=== PATIENT | male | born 1965 | race Caucasian/White ===

== ENCOUNTER 2020-01-11 05:29 | Emergency (ER) | payer MEDICAID, OTHER ==
[~2020-01-11] VITALS: Ht 172.7 cm; Wt 81.6 kg
--- NOTE | 2020-01-11 06:10 | NUR ---
PT AAOX4. AMBULATORY C/O RASHES x 4 DAYS AGO. PLACED ON MONITOR AND PULSE OX. VSS. AWAITING MD FOR EVAL.
[2020-01-11 06:38] VITALS: BP 119/75
--- NOTE | 2020-01-11 06:38 | NUR ---
PT IS MEDCIALLY LCEAR FOR D/C PER MD. DENIED HOMELESS STATUS. Patient discharged to home in stable condition. Rx and Written and verbal after care instructions given. Patient verbalizes understanding of instruction.
== END 2020-01-11 06:39 | disposition home or self-care (01) ==
LOC: ER 05:31
DX: L73.9 Follicular disorder, unspecified (principal); J45.909 Unspecified asthma, uncomplicated

== ENCOUNTER 2020-03-19 01:08 | Emergency (ER) | payer SELFPAY ==
[~2020-03-19] VITALS: Ht 172.7 cm; Wt 72.6 kg
--- NOTE | 2020-03-19 01:47 | NUR ---
PATIENT CAME TO ER BED 10 C/O MIGRAINES 2x DAYS, WHILE TAKING EXCEDRIN WITH NO RELIEF. AAOX4. NO SOB. BREATHING EVENLY AND UNLABORED ON ROOM AIR.
[2020-03-19] MEDS ORDERED: KETOROLAC TROMETHAMINE 15 MG/ML VIAL ONE (01:53)
[2020-03-19] MEDS ORDERED: diphenhydrAMINE HCL 50 MG/ML VIAL ONE (01:53)
[2020-03-19] MEDS ORDERED: METOCLOPRAMIDE HCL 10 MG/2 ML VIAL ONE (01:54)
[2020-03-19] MEDS ORDERED: AZITHROMYCIN 250 MG TABLET ONE (01:54)
[2020-03-19] MEDS ORDERED: CEFTRIAXONE 500 MG VIAL ONE (01:54)
[2020-03-19] MEDS ORDERED: CEFTRIAXONE 500 MG VIAL IV ONE (02:00)
[2020-03-19] MEDS ORDERED: KETOROLAC TROMETHAMINE INJ 60 MG/2 ML VIAL IM ONE (02:00)
[2020-03-19] MEDS ORDERED: AZITHROMYCIN 250 MG TABLET PO ONE (02:00)
[2020-03-19] MEDS ORDERED: METOCLOPRAMIDE HCL 10 MG/2 ML VIAL IV ONE (02:00)
[2020-03-19] MEDS ORDERED: IV NS 0.9% 1,000 ML BAG IV ONE (02:00)
[2020-03-19] MEDS ORDERED: diphenhydrAMINE HCL 50 MG/ML VIAL IV ONE (02:00)
--- NOTE | 2020-03-19 02:10 | NUR ---
PATIENT STATES, "I FEEL BETTER, I WANT TO LEAVE RIGHT NOW".
--- NOTE | 2020-03-19 02:16 | NUR ---
IV removed. Catheter intact and site benign. Pressure and 4x4 applied to site. No bleeding noted.
--- NOTE | 2020-03-19 02:17 | NUR ---
Patient discharged to home in stable condition. Written and verbal after care instructions given. Patient verbalizes understanding of instruction.
--- NOTE | 2020-03-19 03:01 | NUR ---
Note undone in EDM - 03/19/20 at 0347 by RAMONA IV removed. Catheter intact and site benign. Pressure and 4x4 applied to site. No bleeding noted.
--- NOTE | 2020-03-19 03:42 | NUR ---
Bhupinder cagle in ED - 03/19/20 at 0347 by RAMONA Patient discharged to home in stable condition. Written and verbal after care instructions given. Patient verbalizes understanding of instruction.
[2020-03-19 04:01] VITALS: BP 18/79
== END 2020-03-19 02:17 | disposition home or self-care (01) ==
LOC: ER 01:10
DX: G43.909 Migraine, unspecified, not intractable, without status migrainosus (principal); L03.119 Cellulitis of unspecified part of limb; L73.9 Follicular disorder, unspecified; Z20.2 Contact with and (suspected) exposure to infections with a predominantly sexual mode of transmission; J45.909 Unspecified asthma, uncomplicated
CPT/HCPCS: 96365; 96372; 96375; 99284; A4216; J0696; J1200; J1885; J2765; J7030 ×2

== ENCOUNTER 2021-04-14 05:46 | Emergency (ER) | payer SELFPAY ==
[~2021-04-14] VITALS: Ht 172.7 cm; Wt 75.3 kg
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
[2021-04-14] MEDS ORDERED: TDAP [DIPH/PERTUSSIS/TET] 0.5 ML VIAL IM ONE ×2 (06:25→06:30)
[2021-04-14] MEDS ORDERED: IV NS 0.9% 1,000 ML BAG IV ONE (06:30)
[2021-04-14 06:40] LABS: BASOPHILS # (AUTO) 0.1 K/uL (0.0-0.2); BASOPHILS % (AUTO) 0.9 % (0.0-2.0); EOSINOPHILS % (AUTO) 4.1 % (0.0-6.0); HEMATOCRIT 41 % (39-51); HEMOGLOBIN 13.6 g/dL (13.5-17.5); LYMPHOCYTES # (AUTO) 1.8 K/uL (0.8-4.8); LYMPHOCYTES % (AUTO) 28.8 % (20.0-44.0); MEAN CORPUSCULAR HGB CONC 33 g/dl (31.0-36.0); MEAN CORPUSCULAR VOLUME 91 fL (80-96); MONOCYTES # (AUTO) 0.5 K/uL (0.1-1.30); MONOCYTES % (AUTO) 8.7 % (2.0-12.0); NEUTROPHILS # (AUTO) 3.6 K/uL (1.8-8.9); NEUTROPHILS % (AUTO) 57.5 % (43.0-81.0); PLATELET COUNT (AUTO) 248 K/uL (150-450); RED BLOOD CELL COUNT(AUTO) 4.49 MIL/uL (4.5-6.0); WHITE BLOOD COUNT (AUTO) 6.2 K/uL (4.3-11.0)
[2021-04-14 07:09] LABS: ALANINE AMINOTRANSFERASE 24 U/L (12-78); ALBUMIN 3.5 g/dL (3.4-5.0); ALCOHOL, BLOOD < 3 mg/dL (0-0); ALKALINE PHOSPHATASE 69 U/L (46-116); ASPARTATE AMINOTRANSFERASE 18 U/L (15-37); BILIRUBIN,DIRECT 0.1 mg/dL (0.0-0.2); BILIRUBIN,TOTAL 0.4 mg/dL (0.2-1.0); CALCIUM, SERUM 8.1 mg/dL (8.5-10.1); CARBON DIOXIDE 30 mmol/L (21-32); CHLORIDE 105 mmol/L (98-107); CREATININE 0.9 mg/dL (0.6-1.3); GLUCOSE 130 mg/dL (74-106); POTASSIUM 3.6 mmol/L (3.5-5.1); SODIUM SERUM 140 mmol/L (136-145); TOTAL PROTEIN, SERUM 7.1 g/dL (6.4-8.2); UREA NITROGEN, BLOOD 17 mg/dL (7-18)
--- NOTE | 2021-04-14 08:25 | NUR ---
URINE COLLECTED AND SENT TO THE LAB
--- NOTE | 2021-04-14 08:26 | NUR ---
urine collected and sent to lab.
[2021-04-14 09:19] LABS: BILIRUBIN,URINE NEGATIVE (NEGATIVE); COLOR,URINE YELLOW (YELLOW); LEUKOCYTE ESTERASE ,URINE NEGATIVE (NEGATIVE); NITRITE, URINE NEGATIVE (NEGATIVE); PH,URINE 5.5 (5.0-8.0); PROTEIN,URINE NEGATIVE (NEGATIVE); UGLUCOSE NEGATIVE (NEGATIVE); UROBILINOGEN,URINE 0.2 EU/dL (0.2)
[2021-04-14 09:31] LABS: BACTERIA,URINE Rare /HPF (None Seen); RBC,URINE 0-2 /HPF (0-2); SQUAMOUS EPITHELIAL CELL,UR Rare /HPF (None Seen); WBC,URINE 0-2 /HPF (0-3)
[2021-04-14] MEDS ORDERED: NALO4SPR NS (10:09)
--- NOTE | 2021-04-14 10:21 | NUR ---
THE PATIENT SLEEPING. RESPONSIVE TO VERBAL STIMULI. RESPIRATION REGULAR AND UNLABORED. VSS. WILL CONTINUE TO MONITOR THE PATIENT.
[2021-04-14] MEDS ORDERED: BACITRACIN ZINC OINT PACKET 1 EA PACKET TP ONE (10:30)
--- NOTE | 2021-04-14 12:10 | NUR ---
PT AWAKE, AAOX3. WOUND DRESSING DONE. PT PROVIDED W. MEAL TRAY. STABLE VITALS.
--- NOTE | 2021-04-14 12:50 | NUR ---
Patient discharged to home in stable condition. Written and verbal after care instructions given. Patient verbalizes understanding of instruction.
[2021-04-14 12:51] VITALS: BP 125/80
== END 2021-04-14 12:51 | disposition home or self-care (01) ==
LOC: ER 05:48
DX: S80.12XA Contusion of left lower leg, initial encounter (principal); S81.832A Puncture wound without foreign body, left lower leg, initial encounter; F19.10 Other psychoactive substance abuse, uncomplicated; F11.10 Opioid abuse, uncomplicated; F16.10 Hallucinogen abuse, uncomplicated; F15.10 Other stimulant abuse, uncomplicated; F14.10 Cocaine abuse, uncomplicated; F12.10 Cannabis abuse, uncomplicated; J45.909 Unspecified asthma, uncomplicated; X95.8XXA Assault by other firearm discharge, initial encounter; Y93.89 Activity, other specified; Y92.89 Other specified places as the place of occurrence of the external cause; Y99.8 Other external cause status
CPT/HCPCS: 36415; 73590; 80048; 80076; 80307; 80320; 81001; 82962; 85025; 90471; 90715; 96360; 99285; A6403; G0480; J7030

== ENCOUNTER 2021-04-23 22:22 | Emergency (ER) | payer MEDICAID, OTHER ==
[~2021-04-23] VITALS: Ht 172.7 cm; Wt 72.6 kg
[~2021-04-23 22:22] MED LIST: NALO4SPR NS
--- NOTE | 2021-04-23 22:38 | NUR ---
[facility]AM[facility] AND [employer] FROM [facility] C/O OD ON UNKNOWN DRUG. 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 PLACED ON COMPUTER SCIENCE INTERN AND PULSE OX. NO ACUTE DISTRESS NOTED.
[2021-04-23] MEDS ORDERED: NALOXONE PREFILLED SYRINGE 2 MG/2 ML SYRINGE IV ONE (23:30)
[2021-04-23] MEDS ORDERED: ONDANSETRON HCL/PF 4 MG/2 ML VIAL ONE (23:32)
[2021-04-23] MEDS ORDERED: NALOXONE PREFILLED SYRINGE 2 MG/2 ML SYRINGE ONE (23:32)
[2021-04-23 23:41] LABS: MEAN CORPUSCULAR HGB CONC 33 g/dl (31.0-36.0); RED BLOOD CELL COUNT(AUTO) 4.64 MIL/uL (4.5-6.0)
--- NOTE | 2021-04-23 23:45 | NUR ---
BROUGHT TO CT
[2021-04-23 23:46] LABS: BASOPHILS # (AUTO) 0.1 K/uL (0.0-0.2); BASOPHILS % (AUTO) 0.9 % (0.0-2.0); EOSINOPHILS % (AUTO) 0.6 % (0.0-6.0); HEMATOCRIT 42 % (39-51); HEMOGLOBIN 13.9 g/dL (13.5-17.5); LYMPHOCYTES # (AUTO) 1.3 K/uL (0.8-4.8); LYMPHOCYTES % (AUTO) 12.5 % (20.0-44.0); MEAN CORPUSCULAR VOLUME 91 fL (80-96); MONOCYTES # (AUTO) 0.8 K/uL (0.1-1.30); MONOCYTES % (AUTO) 7.5 % (2.0-12.0); NEUTROPHILS # (AUTO) 8.3 K/uL (1.8-8.9); NEUTROPHILS % (AUTO) 78.5 % (43.0-81.0); PLATELET COUNT (AUTO) 310 K/uL (150-450); WHITE BLOOD COUNT (AUTO) 10.6 K/uL (4.3-11.0)
--- NOTE | 2021-04-23 23:58 | NUR ---
BROUGHT BACK FROM CT
[2021-04-24 00:06] LABS: ALANINE AMINOTRANSFERASE 24 U/L (12-78); ALBUMIN 3.4 g/dL (3.4-5.0); ALCOHOL, BLOOD < 3 mg/dL (0-0); ALKALINE PHOSPHATASE 74 U/L (46-116); ASPARTATE AMINOTRANSFERASE 15 U/L (15-37); BILIRUBIN,DIRECT 0.1 mg/dL (0.0-0.2); BILIRUBIN,TOTAL 0.5 mg/dL (0.2-1.0); CALCIUM, SERUM 8.2 mg/dL (8.5-10.1); CARBON DIOXIDE 30 mmol/L (21-32); CHLORIDE 105 mmol/L (98-107); CREATININE 0.9 mg/dL (0.6-1.3); GLUCOSE 133 mg/dL (74-106); POTASSIUM 4.1 mmol/L (3.5-5.1); SODIUM SERUM 142 mmol/L (136-145); TOTAL PROTEIN, SERUM 7.3 g/dL (6.4-8.2); UREA NITROGEN, BLOOD 14 mg/dL (7-18)
[2021-04-24 00:07] LABS: ACETAMINOPHEN < 2 ug/ml (10-30)
--- NOTE | 2021-04-24 00:44 | NUR ---
Patient discharged in stable condition. Written and verbal after care instructions given. Patient verbalizes understanding of instruction. Pt left with [employer].
--- NOTE | 2021-04-24 00:44 | NUR ---
IV removed. Catheter intact and site benign. Pressure and 4x4 applied to site. No bleeding noted.
[2021-04-24 00:45] VITALS: BP 121/72
[2021-04-25] MEDS ORDERED: ONDANSETRON HCL/PF 4 MG/2 ML VIAL IV ONE (07:30)
== END 2021-04-24 00:45 ==
LOC: ER 22:24
DX: F19.10 Other psychoactive substance abuse, uncomplicated (principal); J45.909 Unspecified asthma, uncomplicated
CPT/HCPCS: 36415; 70450; 72125; 80048; 80076; 80143; 80179; 80320; 82962; 85025; 96374; 99285; J2310; J2405; G0480

== ENCOUNTER 2022-01-21 18:02 | Emergency (ER) | payer MEDICAID ==
[~2022-01-21] VITALS: Ht 172.7 cm; Wt 68.0 kg
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
[2022-01-21] MEDS ORDERED: ACETAMINOPHEN ES 500 MG TABLET PO ONE (18:30)
[2022-01-21] MEDS ORDERED: ACETAMINOPHEN ES 500 MG TABLET ONE (18:46)
--- NOTE | 2022-01-21 19:03 | NUR ---
SPOKE TO RADIOLOGY PT HAS SMALL PNEUMOTHORAX ON THE RIGHT SIDE, AWARE.
[2022-01-21] MEDS ORDERED: ONDANSETRON HCL/PF 4 MG/2 ML VIAL ONE (19:22)
[2022-01-21] MEDS ORDERED: HYDROMORPHONE 1 MG/1 ML DISP.SYRIN ONE ×2 (19:22→23:13)
--- NOTE | 2022-01-21 19:22 | NUR ---
STORE WAREHOUSE ASSOCIATE AT PT'S BEDSIDE
--- NOTE | 2022-01-21 19:29 | NUR ---
spoke with NILE Borrego at the [facility] ER for higher level of care transfer. Requested Imaging and Face Sheet. to [phone]
[2022-01-21] MEDS ORDERED: ONDANSETRON HCL/PF 4 MG/2 ML VIAL IVP ONE (19:30)
[2022-01-21] MEDS ORDERED: HYDROMORPHONE INJ 2 MG/ML DISP.SYRIN IV ONE (19:30)
--- NOTE | 2022-01-21 19:35 | NUR ---
PT TAKEN TO CT VIA REG
--- NOTE | 2022-01-21 19:35 | NUR ---
faxed clinicals to [facility].
--- NOTE | 2022-01-21 19:38 | NUR ---
CALLED [facility] REGARDING TRANSFER FOR HIGHER LEVEL OF CARE. WILL FAX CLINICALS.
--- NOTE | 2022-01-21 19:40 | NUR ---
FAXED FACESHEET AND CLINICALS TO [facility].
--- NOTE | 2022-01-21 19:46 | NUR ---
Called [facility] and spoke with Steffanie to request for higher level of care. Clinicals requested.
--- NOTE | 2022-01-21 19:52 | NUR ---
Pt is accepted at the [facility].
--- NOTE | 2022-01-21 19:52 | NUR ---
Dr. Ortega on the phone with Dr. Bui.
--- NOTE | 2022-01-21 19:57 | NUR ---
COVID ANTIGEN SWAB COLLECTED AND SENT TO LAB
--- NOTE | 2022-01-21 20:18 | NUR ---
[facility] ambulance have no available ALS unit.
--- NOTE | 2022-01-21 20:20 | NUR ---
cannled all tow no available ALS unit.
[2022-01-21] MEDS ORDERED: LIDOCAINE 1% INJ 50 ML MDV IJ ONE (20:23)
--- NOTE | 2022-01-21 20:27 | NUR ---
consent obtained from patient for a Chest Tube Insertion for Right Pneumothorax with Moderate Sedation.
[2022-01-21] MEDS ORDERED: FENTANYL PF 100MCG/2ML AMPUL ONE (20:30)
[2022-01-21] MEDS ORDERED: MIDAZOLAM 50 MG/10 ML VIAL ONE (20:31)
[2022-01-21] MEDS ORDERED: MIDAZOLAM HCL 5 MG/5ML VIAL ONE (20:34)
[2022-01-21 20:42] LABS: BASOPHILS % (AUTO) 0.2 % (0.0-2.0); EOSINOPHILS % (AUTO) 0.1 % (0.0-6.0); HEMATOCRIT 37 % (39-51); HEMOGLOBIN 12.2 g/dL (13.5-17.5); LYMPHOCYTES # (AUTO) 0.6 K/uL (0.8-4.8); LYMPHOCYTES % (AUTO) 2.9 % (20.0-44.0); MEAN CORPUSCULAR HGB CONC 33 g/dl (31.0-36.0); MEAN CORPUSCULAR VOLUME 88 fL (80-96); MONOCYTES % (AUTO) 4.8 % (2.0-12.0); NEUTROPHILS # (AUTO) 19.5 K/uL (1.8-8.9); PLATELET COUNT (AUTO) 336 K/uL (150-450); RED BLOOD CELL COUNT(AUTO) 4.19 MIL/uL (4.5-6.0); WHITE BLOOD COUNT (AUTO) 21.2 K/uL (4.3-11.0)
--- NOTE | 2022-01-21 20:47 | NUR ---
[facility] ambulance fro ALS. Spoke with Colby. Will call back for ETA.
--- NOTE | 2022-01-21 20:47 | NUR ---
MD AND RT AT BEDSIDE FOR CHEST TUBE INSERTION. CONSENT SIGNED AND IN CHART.
--- NOTE | 2022-01-21 20:50 | NUR ---
FENTANYL 100MCG AND VERSED 5MG ADMINSTERRED PER MD ORDER
--- NOTE | 2022-01-21 20:50 | NUR ---
Spoke with NILE Lane at the [facility] to inform that the patient will be having a Chest Tube inserted. Also informed that ETA will be after midnight.
[2022-01-21 20:53] LABS: CALCIUM, SERUM 8.9 mg/dL (8.5-10.1); CREATININE 0.9 mg/dL (0.6-1.3); POTASSIUM 3.7 mmol/L (3.5-5.1)
--- NOTE | 2022-01-21 20:56 | NUR ---
SIZE 32 TROCAR CHEST TUBE INSERTED AT 10CM. CONNECTED TO COLLECTION CHAMBER AND SUCTION. INTERMITTENT BUBBLING NOTED IN CHAMBER. XRAY PAGED FOR PLACEMENT CONFIRMATION.
--- NOTE | 2022-01-21 20:56 | NUR ---
CHEST TUBE INSERTION: PT AGREED FOR CHEST TUBE INSERTION AND SIGNED CONSENT FORM. VERBALIZED UNDERSTANDING. DR. DICKEY, RN, RT, 7 EMT AT PT'S BEDSIDE. CHEST TUBE SIZE 32 INSERTED TO RIGHT LUNG AT 10CM. PT TOLERATING PROCEDURE WELL. VSS. SATTING 100% ON NRB 15LPM
[2022-01-21] MEDS ORDERED: LIDOCAINE 1%-EPI 1:100,000 20 ML VIAL TP ONE (21:00)
[2022-01-21] MEDS ORDERED: FENTANYL PF 100MCG/2ML AMPUL IV ONE (21:00)
[2022-01-21] MEDS ORDERED: MIDAZOLAM HCL 2 MG/2ML VIAL IV ONE (21:00)
[2022-01-21 21:01] LABS: BAND % (MANUAL) 1 % (0.0-5.0); LYMPHOCYTES % (MANUAL) 5 % (16-48); MONOCYTES % (MANUAL) 4 % (0-11.0); NEUTROPHILS % (MANUAL) 90 (42-76)
--- NOTE | 2022-01-21 21:01 | NUR ---
XRAY AT BEDSIDE
--- NOTE | 2022-01-21 22:34 | NUR ---
BENI CALLED BACK WITH ETA [id number].
--- NOTE | 2022-01-21 23:08 | NUR ---
REPORT GIVEN TO YONI DOWD FROM [facility]
[2022-01-21 23:11] VITALS: BP 113/65
--- NOTE | 2022-01-21 23:25 | NUR ---
REPORT GIVEN TO EMT FROM [facility] ;PT TO TRANSFER TO [facility]. VSS.
== END 2022-01-21 23:27 | disposition short-term general hospital (02) ==
LOC: ER 18:04
DX: S27.0XXA Traumatic pneumothorax, initial encounter (principal); S22.41XA Multiple fractures of ribs, right side, initial encounter for closed fracture; S42.191A Fracture of other part of scapula, right shoulder, initial encounter for closed fracture; S42.031A Displaced fracture of lateral end of right clavicle, initial encounter for closed fracture; S22.049A Unspecified fracture of fourth thoracic vertebra, initial encounter for closed fracture; S22.059A Unspecified fracture of T5-T6 vertebra, initial encounter for closed fracture; S22.069A Unspecified fracture of T7-T8 vertebra, initial encounter for closed fracture; S22.079A Unspecified fracture of T9-T10 vertebra, initial encounter for closed fracture; S22.089A Unspecified fracture of T11-T12 vertebra, initial encounter for closed fracture; V27.4XXA Motorcycle driver injured in collision with fixed or stationary object in traffic accident, initial encounter; Y92.414 Local residential or business street as the place of occurrence of the external cause; Z59.00 Homelessness unspecified; J45.909 Unspecified asthma, uncomplicated; J98.2 Interstitial emphysema; Z20.822 Contact with and (suspected) exposure to COVID-19; R00.0 Tachycardia, unspecified
CPT/HCPCS: 32551; 36415; 71045; 71100; 71250; 73030; 80048; 85007; 85025; 85730; 87426; 93005; 96374; 96375; 99152; 99291; C9803; J1170 ×2; J2250; J2405; J3010; J3490; G0500